=== PATIENT | female | born 1990 | race Caucasian/White ===

== ENCOUNTER 2017-10-01 12:19 | Outpatient (CLI) | payer BC ==
[2017-10-03 19:07] LABS: *HSV 1 DNA PCR Negative (Negative); *HSV 2 DNA PCR Negative (Negative)
== END 2017-10-01 23:59 | disposition home or self-care (01) ==
LOC: LAB 12:19
PROVIDERS: ATTEND Family Medicine
DX: N76.0 Acute vaginitis (principal)
CPT/HCPCS: 36415; 87210-TC

== ENCOUNTER 2017-10-02 10:01 | Outpatient (CLI) | payer BC | END 2017-10-02 23:59 | disposition home or self-care (01) | LOC: US 10:01 | PROVIDERS: ATTEND Family Medicine | DX: D25.9 Leiomyoma of uterus, unspecified (principal) | CPT/HCPCS: 76856-TC ==